=== PATIENT | female | born 1965 | race Caucasian/White ===

== ENCOUNTER 2018-07-10 19:00 | Emergency (ER) | payer OTHER ==
[~2018-07-10] VITALS: Ht 162.6 cm; Wt 75.3 kg
[2018-07-10 19:58] VITALS: BP 148/87
== END 2018-07-10 20:19 | disposition home or self-care (01) ==
LOC: M.ERS 19:00
DX: S61.210A Laceration without foreign body of right index finger without damage to nail, initial encounter (principal); W26.0XXA Contact with knife, initial encounter; Y92.89 Other specified places as the place of occurrence of the external cause; Y93.89 Activity, other specified; Y99.8 Other external cause status

== ENCOUNTER 2018-12-20 14:45 | Emergency (ER) | payer BC ==
[~2018-12-20] VITALS: Ht 162.6 cm; Wt 77.1 kg
[2018-12-20] MEDS ORDERED: SPIRONOLACTONE25 M1 PO (14:53)
[2018-12-20] MEDS ORDERED: DAILY MULTIPLE1 EACH PO (14:54)
[2018-12-20] MEDS ORDERED: ACYCLOVIR 400400 MG PO (14:54)
[2018-12-20 15:14] LABS: ABSOLUTE BASOPHILS 0.1 thou/uL (0.0-0.2); ABSOLUTE EOSINOPHILS 0.1 thou/uL (0.0-0.7); ABSOLUTE LYMPHOCYTES 1.6 thou/uL (0.8-5.3); ABSOLUTE MONOCYTES 0.5 thou/uL (0.0-1.2); ABSOLUTE NEUTROPHILS 5.9 thou/uL (1.6-8.1); BASOPHILS 0.7 %; EOSINOPHILS 1.5 %; HEMATOCRIT 38.5 % (37.0-47.0); HEMOGLOBIN 13.2 gm/dL (12.0-15.0); LYMPHOCYTES 19.8 %; MCH 32.2 pg (26.0-34.0); MCHC 34.3 g/dL (28.0-37.0); MONOCYTES 6.3 %; MPV 9.3 fl. (7.2-11.1); NUCLEATED RBCS 0 /100WBC; PLATELET COUNT* 263 thou/uL (150-400); POLYS 71.7 %; RDW-CV 12.5 % (10.5-14.5); WBC 8.2 thou/uL (4.0-11.0)
[2018-12-20 15:22] LABS: PROTIME 9.9 Seconds (9.20-11.50)
[2018-12-20 15:23] LABS: ANION GAP 9 mmol/L (7-16); BUN 15 mg/dL (7-18); CHLORIDE 104 mmol/L (98-107); CO2 30 mmol/L (21-32); CREATININE 1.1 mg/dL (0.6-1.3); GLUCOSE 64 mg/dL (70-99); POTASSIUM 3.6 mmol/L (3.5-5.1); SODIUM 143 mmol/L (136-145); TROPONIN-I LEVEL <0.06 ng/mL (<0.06)
[2018-12-20 15:25] LABS: ALBUMIN 3.8 g/dL (3.4-5.0); ALKALINE PHOSPHATASE 82 U/L (46-116); LIPASE 174 U/L (73-393); NT-PRO BRAIN NAT PEPTIDE 143 pg/mL (<300); SGOT 12 U/L (15-37); SGPT 21 U/L (30-65); TOTAL BILIRUBIN 0.3 mg/dL (<0.1-1.0); TOTAL PROTEIN 7.3 g/dL (6.4-8.2)
[2018-12-20 15:48] LABS: URINE BILIRUBIN NEGATIVE (Negative); URINE BLOOD NEGATIVE (Negative); URINE CLARITY CLEAR; URINE COLOR YELLOW; URINE GLUCOSE-RANDOM NEGATIVE (Negative); URINE KETONES NEGATIVE (Negative); URINE LEUKOCYTES-REFLEX NEGATIVE (Negative); URINE NITRITE-REFLEX NEGATIVE (Negative); URINE PROTEIN NEGATIVE (Negative); URINE UROBILINOGEN 0.2 E.U./dl (0.2-1.0)
[2018-12-20 17:29] VITALS: BP 130/79
[2018-12-21 03:06] LABS: T3 UPTAKE 20 % (24-39)
--- NOTE | 2018-12-21 13:21 | EKG ---
[place] [address] ELECTROCARDIOGRAM REPORT Name: SHADI CARBONE Room: [facility]#: [id number] Admission: 12/20/18 Attend Phys: Discharge: 12/20/18 Date of : 67 Report #: [id number] THIS REPORT FOR: //name// [facility] ED Test Date: 2018-12-20 Test Time: 14:50:40 Pat Name: SHADI CARBONE Department: Room: Gender: F Contract Administrative Assistant: : [id number] Requested By: Arturo Quinn Order Number: [id number] MD: Omar Dennis Measurements Intervals [place] Rate: 59 P: -5 WA: 131 QRS: -2 QRSD: 85 T: 16 QT: 402 QTc: 399 Interpretive Statements Sinus rhythm No previous ECG available for comparison Electronically Signed On 12-21-2018 13:21:19 CDT by Omar Dennis [email or web address] <ELECTRONICALLY SIGNED> By: Omar Dennis MD, [facility] 12/21/18 1321 1450 1450 Omar Dennis MD, FACC /EPI
== END 2018-12-20 17:29 | disposition home or self-care (01) ==
LOC: M.ERS 14:45
PROVIDERS: Emergency Medicine
DX: R42 Dizziness and giddiness (principal)